=== PATIENT | male | born 1990 | race Caucasian/White ===

== ENCOUNTER 2019-03-16 09:05 | Emergency (ER) | payer SELFPAY ==
[2019-03-16] MEDS ORDERED: Proparacaine 0.5% Ophth Soln 15 ML Bottle EYEBOTH STA (09:17)
[2019-03-16 09:21] VITALS: BP 124/72; PULSE 60
--- NOTE | 2019-03-16 09:38 | EDM.PDOC ---
ED HPI GENERAL MEDICAL PROBLEM - General Chief Complaint: Eye Problems Stated Complaint: CHEMICAL IN RT EYE Time Seen by Provider: 03/16/19 09:18 Source of Information: Reports: Patient, Family, RN Notes Reviewed History Limitations: Reports: No Limitations - History of Present Illness INITIAL COMMENTS - FREE TEXT/NARRATIVE: 29-year-old gentleman presents emergency department today following chemical irritation to the right eye, this occurred at work he was pouring 1 chemical into another buckets, exposure was a poly-resin that has styrene and cobalt components, MDs sheet recommends irrigation with water. Right Eye Pain Score (Numeric/FACES): 4 - Related Data Allergies Allergy/AdvReac Type Severity Reaction Status Date / Time amoxicillin [Amoxicillin] Allergy Rash Verified 03/16/19 09:25 Home Meds: Home Meds NK [No Known Home Meds] 07/26/15 [History] Past Medical History Psychiatric History: Reports: Depression, Suicidal Ideation Social & Family History - Tobacco Use Smoking Status *Q: Current Every Day Smoker ED ROS GENERAL - Review of Systems Review Of Systems: See Below Constitutional: Reports: No Symptoms HEENT: Reports: Eye Discharge, Eye Pain, Vision Change ED EXAM GENERAL W FULL EYE - Physical Exam Exam: See Below Exam Limited By: No Limitations General Appearance: Alert, Mild Distress Eye Exam: Right Eye: Conjunctival Injection, Left Eye: Normal Inspection, Bilateral Eye: EOMI, PERRL Eyelids: Bilateral: Normal Appearance Conjunctiva & Sclera: Right: Conjunctival Edema, Injected, Left: Normal Appearance Cornea Exam: Right: Normal Appearance, Examined with Flourescein Extraocular Movements: Bilateral: Intact Pupils: Normal Accommodation Pupillary Size: Bilateral: 4 mm Pupillary Reaction: Bilateral: Brisk Anterior Chamber: Bilateral: Normal Appearance Course - Vital Signs Last Recorded V/S: Last Vital Signs Temp 97.2 F 03/16/19 09:24 Pulse 60 03/16/19 09:24 Resp 16 03/16/19 09:24 BP 124/72 03/16/19 09:24 Pulse Ox 98 03/16/19 09:24 - Orders/Labs/Meds Orders: Active Orders 24 hr Category Date Time Status Eye Irrigation [RC] ASDIRECTED Care 03/16/19 09:17 Active Meds: Medications Discontinued Medications Generic Name Dose Route Start Last Admin Trade Name Freq PRN Reason Stop Dose Admin Proparacaine HCl 1 ml 03/16/19 09:17 03/16/19 09:32 Proparacaine 0.5% Ophth Soln EYEBOTH 03/16/19 09:18 3 drop NOW STA Administration Departure - Departure Time of Disposition: 10:28 Disposition: Home, Self-Care 01 Condition: Fair Clinical Impression: Chemical injury of eye Qualifiers: Encounter type: initial encounter Laterality: right Qualified Code(s): T26.91XA - Corrosion of right eye and adnexa, part unspecified, initial encounter - Discharge Information Referrals: PCP,None [Primary Care Provider] - Forms: ED Department Discharge Additional Instructions: Continue with regular medications, recommend follow-up with eye care provider in 2-3 days if no improvement call or return to the emergency department worsening symptoms - My Orders Last 24 Hours: My Active Orders 03/16/19 09:17 Eye Irrigation [RC] ASDIRECTED - Assessment/Plan Last 24 Hours: My Active Orders 03/16/19 09:17 Eye Irrigation [RC] ASDIRECTED Plan: Assessment Acuity = acute Site and laterality = chemical exposure right eye 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 He had good relief with flushing plan is to follow-up with eye care provider in 2-3 days if no improvement This note was dictated using [employer] voice recognition software please call with any questions on syntax or grammar.
== END 2019-03-16 10:35 | disposition home or self-care (01) ==
LOC: JP.ED 09:05
DX: T26.61XA Corrosion of cornea and conjunctival sac, right eye, initial encounter (principal); F17.200 Nicotine dependence, unspecified, uncomplicated; Z88.1 Allergy status to other antibiotic agents; Y99.0 Civilian activity done for income or pay
CPT/HCPCS: 99283; A9270; 99282

== ENCOUNTER 2019-07-18 15:56 | Emergency (ER) | payer SELFPAY ==
[2019-07-18 16:14] VITALS: BP 130/85; PULSE 73
[2019-07-18] MEDS ORDERED: Bacitracin Oint 1 GM U/D Packet TOP ONE (16:36)
[2019-07-18] MEDS ORDERED: Diphtheria,Pertussis(Acell),Tetanus Vaccine 0.5 ML SDV IM ONE (16:36)
--- NOTE | 2019-07-18 16:41 | EDM.PDOC ---
ED HPI GENERAL MEDICAL PROBLEM - General Chief Complaint: Laceration Stated Complaint: CUT ARM AT WORK Time Seen by Provider: 07/18/19 16:15 Source of Information: Reports: Patient History Limitations: Reports: No Limitations - History of Present Illness INITIAL COMMENTS - FREE TEXT/NARRATIVE: 29-year-old healthy male presents after sustaining a laceration to his left arm. 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 Minimal pain or bleeding. Unsure last tetanus shot. Sensation and motor function intact in the left hand. Left Arm Pain Score (Numeric/FACES): 2 - Related Data Allergies Allergy/AdvReac Type Severity Reaction Status Date / Time amoxicillin [Amoxicillin] Allergy Rash Verified 07/18/19 16:12 Home Meds: Home Meds NK [No Known Home Meds] 07/26/15 [History] Past Medical History Psychiatric History: Reports: Depression, Suicidal Ideation - Past Surgical History HEENT Surgical History: Reports: Other (See Below) Other HEENT Surgeries/Procedures: facial surgery after facial fractures Social & Family History - Tobacco Use Smoking Status *Q: Current Every Day Smoker Years of Tobacco use: 13 Packs/Tins Daily: 1 Used Tobacco, but Quit: No - Caffeine Use Caffeine Use: Reports: Coffee, Energy Drinks, Soda - Recreational Drug Use Recreational Drug Use: No ED ROS GENERAL - Review of Systems Review Of Systems: See Below Constitutional: Reports: No Symptoms HEENT: Reports: No Symptoms Respiratory: Reports: No Symptoms Cardiovascular: Reports: No Symptoms Endocrine: Reports: No Symptoms GI/Abdominal: Reports: No Symptoms : Reports: No Symptoms Musculoskeletal: Reports: No Symptoms Skin: Reports: Wound Neurological: Reports: No Symptoms Psychiatric: Reports: No Symptoms Hematologic/Lymphatic: Reports: No Symptoms Immunologic: Reports: No Symptoms ED EXAM, SKIN/RASH Exam: See Below Exam Limited By: No Limitations General Appearance: Alert, No Apparent Distress Ears: Normal External Exam Nose: Normal Inspection Throat/Mouth: Normal Inspection Head: Atraumatic, Normocephalic Neck: Normal Inspection Respiratory/Chest: No Respiratory Distress Cardiovascular: Regular Rate, Rhythm GI/Abdominal: Soft, No Distention Back Exam: Normal Inspection Extremities: Other (3 cm laceration through skin lateral, distal left forarm. No tender involvement. Distal CSM intact.) Neurological: Alert, Oriented Psychiatric: Normal Affect, Normal Mood Skin: Warm, Dry ED SKIN PROCEDURES - Laceration/Wound Repair Left Distal Arm Appearance: Subcutaneous Distal NVT: Neuro & Vascular Intact, No Tendon Injury Anesthetic Type: Local Local Anesthesia - Lidocaine (Xylocaine): 1% with EPI Local Anesthetic Volume: 2cc Skin Prep: Other (run under tap, local scrubbing) Exploration/Debridement/Repair: Wound Explored Closed with: Sutures Lac/Wound length In cm: 3 Suture Size: 4-0 # of Sutures: 2 Suture Type: Nylon Sterile Dressing Applied: Nurse Tetanus Status Addressed: Yes Complications: No Course - Vital Signs Last Recorded V/S: Last Vital Signs Temp 36.8 C 07/18/19 16:15 Pulse 73 07/18/19 16:15 Resp 73 H 07/18/19 16:15 BP 130/85 07/18/19 16:15 Pulse Ox 97 07/18/19 16:15 - Orders/Labs/Meds Orders: Active Orders 24 hr Category Date Time Status Vaccines to be Administered [RC] PER UNIT ROUTINE Care 07/18/19 16:36 Ordered Meds: Medications Discontinued Medications Generic Name Dose Route Start Last Admin Trade Name Hector PRN Reason Stop Dose Admin Bacitracin 1 dose 07/18/19 16:36 Bacitracin Oint 1 Gm TOP 07/18/19 16:37 ONETIME ONE Diphtheria/Tetanus/Acell Pertussis 0.5 ml 07/18/19 16:36 Adacel IM 07/18/19 16:37 .ONCE ONE - Re-Assessments/Exams Free Text/Narrative Re-Assessment/Exam: 29-year-old presents with left forearm laceration. Cut through the skin but no deep structure involvement. Distally neurovascularly intact. Repaired as above. Administered tetanus. Discussed wound cares, will follow-up in approximately 7 days for suture removal. 07/18/19 16:49 Departure - Departure Time of Disposition: 16:45 Disposition: Home, Self-Care 01 Clinical Impression: Laceration - Discharge Information *PRESCRIPTION DRUG MONITORING PROGRAM REVIEWED*: No *COPY OF PRESCRIPTION DRUG MONITORING REPORT IN PATIENT ELIF: No Instructions: Laceration Care, Adult, [id number] Referrals: PCP,None [Primary Care Provider] - Forms: ED Department Discharge Additional Instructions: Please follow up with your primary doctor in approximately 7 days for suture removal. As discussed, keep the area dry and covered with antibiotic ointment for the next 48 hrs See a physician for increasing redness, pain, or discharge as these may be signs of infection - My Orders Last 24 Hours: My Active Orders 07/18/19 16:36 Vaccines to be Administered [RC] PER UNIT ROUTINE - Assessment/Plan Last 24 Hours: My Active Orders 07/18/19 16:36 Vaccines to be Administered [RC] PER UNIT ROUTINE
== END 2019-07-18 16:58 | disposition home or self-care (01) ==
LOC: JP.ED 15:56
DX: S51.812A Laceration without foreign body of left forearm, initial encounter (principal); Z23 Encounter for immunization; F17.210 Nicotine dependence, cigarettes, uncomplicated; Z88.1 Allergy status to other antibiotic agents; W29.8XXA Contact with other powered hand tools and household machinery, initial encounter
CPT/HCPCS: 12002; 90471; 90715; 99282-25; 99283

== ENCOUNTER 2022-03-07 12:31 | Emergency (ER) | payer SELFPAY ==
[2022-03-07 12:44] VITALS: BP 112/72; PULSE 74
[2022-03-07] MEDS ORDERED: Ketorolac 30 MG/ML SDV IM ONE (13:23)
[2022-03-07] MEDS ORDERED: Sodium Chloride 0.9% 10 ML Syringe FLUSH PRN (13:24)
[2022-03-07] MEDS ORDERED: Ketorolac 30 MG/ML SDV IVPUSH ONE (13:28)
[2022-03-07] MEDS ORDERED: Morphine 2 MG/ML SYRINGE IVPUSH ONE (13:57)
[2022-03-07] MEDS ORDERED: Sodium Chloride 0.9% 1,000 ML IV ONE (15:09)
== END 2022-03-07 16:03 | disposition home or self-care (01) ==
LOC: JP.ED 12:31
DX: R10.11 Right upper quadrant pain (principal); D72.829 Elevated white blood cell count, unspecified; F17.210 Nicotine dependence, cigarettes, uncomplicated; Z88.0 Allergy status to penicillin
CPT/HCPCS: 36415; 74176; 80048; 80076; 81001; 85025; 96374; 96375; 99284; J1885; J2270; J3490; 99282

== ENCOUNTER 2024-03-12 09:41 | Emergency (ER) | payer MEDICAID ==
[2024-03-12 09:56] LABS: BASOPHILS ABSOLUTE AUTO 0.03 K/uL (0.00-0.10); BASOPHILS PERCENT AUTO 0.2 % (0.1-1.3); EOSINOPHILS ABSOLUTE AUTO 0.07 K/uL (0.00-0.40); EOSINOPHILS PERCENT AUTO 0.5 % (0.0-5.4); HEMATOCRIT 39.1 % (38.4-49.7); HEMOGLOBIN 13.4 g/dL (12.9-16.9); IMMATURE GRAN ABSOLUTE AUTO 0.04 K/uL (0.00-0.23); IMMATURE GRAN PERCENT AUTO 0.3 % (0.0-0.7); LYMPHOCYTES ABSOLUTE AUTO 2.25 K/uL (0.8-3.3); LYMPHOCYTES PERCENT AUTO 16.7 % (11.4-47.7); MEAN CORPUSCULAR HEMOGLOBIN 27.3 pg (31.6-35.5); MEAN CORPUSCULAR HGB CONC 34.3 g/dL (31.6-35.5); MEAN CORPUSCULAR VOLUME 79.8 fL (81.4-99.0); MONOCYTES ABSOLUTE AUTO 0.91 K/uL (0.20-0.90); MONOCYTES PERCENT AUTO 6.7 % (3.3-12.6); NEUTROPHILS ABSOLUTE AUTO 10.19 K/uL (1.0-7.6); NEUTROPHILS PERCENT AUTO 75.6 % (40.0-78.1); PLATELET COUNT,PLT 191 K/uL (130-375); WHITE BLOOD CELL COUNT,WBC 13.5 K/uL (3.2-11.0)
[2024-03-12 09:57] LABS: BASE EXCESS VENOUS -0.9 mm/L; BICARBONATE,VENOUS 24.2 mmol/L; CARBOXYHEMOGLOBIN 3.5 % (0.0-1.6); METHEMOGLOBIN 0.8 %; O2 SATURATION VENOUS 43.2; OXYHEMOGLOBIN 41.3 %; TOTAL HEMOGLOBIN 14.2 g/dL (13.5-18.0)
[2024-03-12 09:58] LABS: PO2 VENOUS 26.5 mm/Hg
[2024-03-12 10:20] LABS: A/G RATIO 1.1 (1.2-2.2); ALANINE AMINOTRANSFERASE,ALT 29 U/L (12-78); ALBUMIN 3.1 g/dL (3.4-5.0); ALKALINE PHOSPHATASE 105 U/L (46-116); ANION GAP 9.8 mmol/L (5.0-14.0); ASPARTATE AMNIOTRANSFERASE,AST 16 U/L (15-37); BILIRUBIN TOTAL 0.4 mg/dL (0.2-1.0); BLOOD UREA NITROGEN,BUN 18 mg/dL (7-18); CALCIUM 9.2 mg/dL (8.5-10.1); CARBON DIOXIDE,CO2 25 mmol/L (21-32); CHLORIDE,CL 106 mmol/L (100-108); CREATININE 0.6 mg/dL (0.8-1.3); EST CRCL DRUG DOSING (CG) 147.42 mL/min; ESTIMATED GFR 128 mL/min (>60); GLUCOSE RANDOM 92 mg/dL (74-106); POTASSIUM,K 3.8 mmol/L (3.6-5.2); SODIUM,NA 141 mmol/L (140-148); TROPONIN I HIGH SENSITIVITY 8.2 pg/mL (<=60.3)
[2024-03-12 10:35] LABS: CORONAVIRUS COVID-19 NAA NEGATIVE (NEGATIVE); INFLUENZA A NAA NEGATIVE (NEGATIVE); INFLUENZA B NAA NEGATIVE (NEGATIVE); RESPIRATORY SYNCYTIAL VIR NAA NEGATIVE (NEGATIVE)
[2024-03-12] MEDS ORDERED: Iopamidol 612 MG/ML 100 ML Bottle IV ONE (10:46)
[2024-03-12] MEDS: Sodium Chloride 0.9% 1,000 ML IV SCH (10:49)
[2024-03-12 10:51] LABS: APPEARANCE,URINE CLEAR (CLEAR); BILIRUBIN,URINE NEGATIVE (NEGATIVE); COLOR,URINE YELLOW (YELLOW); GLUCOSE,URINE NEGATIVE (NEGATIVE); KETONES,URINE NEGATIVE (NEGATIVE); LEUKOCYTE ESTERASE,URINE NEGATIVE (NEGATIVE); NITRITE,URINE NEGATIVE (NEGATIVE); OCCULT BLOOD,URINE NEGATIVE (NEGATIVE); PH,URINE 5.5 (5.0-8.0); PROTEIN,URINE NEGATIVE (NEGATIVE); UROBILINOGEN,URINE 0.2 EU/dL (0.2-1.0)
[2024-03-12 10:58] LABS: AMORPHOUS SEDIMENT,URINE NOT SEEN; AMPHETAMINES SCREEN, URINE NEGATIVE (NEGATIVE); BACTERIA,URINE NOT SEEN; BARBITURATE SCREEN,URINE NEGATIVE (NEGATIVE); BENZODIAZEPINES SCREEN,URINE NEGATIVE (NEGATIVE); EPITHELIAL CELLS,URINE NOT SEEN; METHADONE SCREEN, URINE NEGATIVE (NEGATIVE); METHAMPHETAMINES SCREEN, URINE NEGATIVE (NEGATIVE); MUCUS,URINE NOT SEEN; OXYCODONE SCREEN,URINE NEGATIVE (NEGATIVE); PROPOXYPHENE SCREEN,URINE NEGATIVE (NEGATIVE); RBC,URINE NOT SEEN (0-5); THC SCREEN,URINE 50 NG/ML PRESUMPTIVE POSITIVE (NEGATIVE); WBC,URINE 0-5 (0-5)
[2024-03-12] MEDS: Sodium Chloride 0.9% 10 ML Syringe FLUSH ONE (11:32)
[2024-03-12] MEDS: Iopamidol 755 Mg/ML 100 ML Bottle IV ONE (11:32)
[2024-03-12] MEDS: Sodium Chloride 0.9% 100 ML IV ONE (11:32)
[2024-03-12 12:06] VITALS: BP 136/82; PULSE 104
== END 2024-03-12 13:20 | disposition home or self-care (01) ==
LOC: JP.ED 09:41
DX: R06.02 Shortness of breath (principal); E86.0 Dehydration; N28.89 Other specified disorders of kidney and ureter; Z88.0 Allergy status to penicillin; Z79.899 Other long term (current) drug therapy
CPT/HCPCS: 0241U; 36415; 71045; 71045-26; 71275; 74177; 80053; 80305-QW; 80307; 81001; 82803; 83605; 84145; 84439; 84443; 84484; 85025; 85379; 93005; 96360; 96361; 99285-25; J3490; J7030; Q9967

== ENCOUNTER 2024-04-23 12:37 | Emergency (ER) | payer MEDICAID ==
[2024-04-23 12:53] VITALS: BP 148/94; PULSE 102
[2024-04-23 13:32] LABS: BASOPHILS ABSOLUTE AUTO 0.04 K/uL (0.00-0.10); BASOPHILS PERCENT AUTO 0.3 % (0.1-1.3); EOSINOPHILS ABSOLUTE AUTO 0.06 K/uL (0.00-0.40); EOSINOPHILS PERCENT AUTO 0.5 % (0.0-5.4); HEMATOCRIT 40.9 % (38.4-49.7); HEMOGLOBIN 14.3 g/dL (12.9-16.9); IMMATURE GRAN ABSOLUTE AUTO 0.03 K/uL (0.00-0.23); IMMATURE GRAN PERCENT AUTO 0.3 % (0.0-0.7); LYMPHOCYTES ABSOLUTE AUTO 2.76 K/uL (0.8-3.3); LYMPHOCYTES PERCENT AUTO 23.3 % (11.4-47.7); MEAN CORPUSCULAR HEMOGLOBIN 27.1 pg (31.6-35.5); MEAN CORPUSCULAR VOLUME 77.6 fL (81.4-99.0); MONOCYTES ABSOLUTE AUTO 1.29 K/uL (0.20-0.90); MONOCYTES PERCENT AUTO 10.9 % (3.3-12.6); NEUTROPHILS ABSOLUTE AUTO 7.66 K/uL (1.0-7.6); NEUTROPHILS PERCENT AUTO 64.7 % (40.0-78.1); PLATELET COUNT,PLT 257 K/uL (130-375); RED BLOOD CELL COUNT 5.27 M/uL (4.14-5.76); WHITE BLOOD CELL COUNT,WBC 11.8 K/uL (3.2-11.0)
[2024-04-23 13:51] LABS: ANION GAP 13.9 mmol/L (5.0-14.0); C-REACTIVE PROTEIN 1.35 mg/dL (<0.50); CALCIUM 9.9 mg/dL (8.5-10.1); CREATININE 0.4 mg/dL (0.8-1.3); EST CRCL DRUG DOSING (CG) 190.67 mL/min; POTASSIUM,K 3.9 mmol/L (3.6-5.2)
[2024-04-23] MEDS: ceFAZolin 2 GM in Premix Bag 1 BAG IV ONE (15:33)
[2024-04-23] MEDS: HYDROmorphone 0.5 MG/0.5 ML Syringe IVPUSH ONE (15:33)
[2024-04-23] MEDS: Ondansetron 4 MG/2 ML SDV IVPUSH ONE (15:39)
== END 2024-04-23 16:14 | disposition home or self-care (01) ==
LOC: JP.ED 12:37
DX: L03.211 Cellulitis of face (principal); K02.9 Dental caries, unspecified; F17.210 Nicotine dependence, cigarettes, uncomplicated; Z88.0 Allergy status to penicillin; Z79.899 Other long term (current) drug therapy; Z86.16 Personal history of COVID-19
CPT/HCPCS: 36415; 70486; 80048; 83605; 85025; 86140; 96365; 96375; 99284; J0690; J1170; J2405

== ENCOUNTER 2024-12-02 14:56 | Emergency (ER) | payer SELFPAY ==
[2024-12-02 15:37] LABS: BASOPHILS ABSOLUTE AUTO 0.04 K/uL (0.00-0.10); BASOPHILS PERCENT AUTO 0.4 % (0.1-1.3); EOSINOPHILS ABSOLUTE AUTO 0.19 K/uL (0.00-0.40); EOSINOPHILS PERCENT AUTO 1.9 % (0.0-5.4); HEMATOCRIT 49.6 % (38.4-49.7); HEMOGLOBIN 16.9 g/dL (12.9-16.9); IMMATURE GRAN PERCENT AUTO 0.2 % (0.0-0.7); LYMPHOCYTES ABSOLUTE AUTO 2.74 K/uL (0.8-3.3); LYMPHOCYTES PERCENT AUTO 28.1 % (11.4-47.7); MEAN CORPUSCULAR HEMOGLOBIN 27.6 pg (31.6-35.5); MEAN CORPUSCULAR HGB CONC 34.1 g/dL (31.6-35.5); MONOCYTES PERCENT AUTO 6.2 % (3.3-12.6); NEUTROPHILS ABSOLUTE AUTO 6.16 K/uL (1.0-7.6); NEUTROPHILS PERCENT AUTO 63.2 % (40.0-78.1); PLATELET COUNT,PLT 221 K/uL (130-375); RED BLOOD CELL COUNT 6.12 M/uL (4.14-5.76); WHITE BLOOD CELL COUNT,WBC 9.8 K/uL (3.2-11.0)
[2024-12-02 15:45] LABS: IMMATURE GRAN ABSOLUTE AUTO 0.02 K/uL (0.00-0.23)
[2024-12-02 15:54] LABS: INR 1.1; PROTHROMBIN TIME 11.4 sec (9.2-10.6)
[2024-12-02 16:07] LABS: A/G RATIO 1.2 (1.2-2.2); ALANINE AMINOTRANSFERASE,ALT 24 U/L (12-78); ALBUMIN 3.6 g/dL (3.4-5.0); ALKALINE PHOSPHATASE 177 U/L (46-116); ANION GAP 11.7 mmol/L (5.0-14.0); ASPARTATE AMNIOTRANSFERASE,AST 10 U/L (15-37); BILIRUBIN TOTAL 0.4 mg/dL (0.2-1.0); BLOOD UREA NITROGEN,BUN 13 mg/dL (7-18); CALCIUM 9.6 mg/dL (8.5-10.1); CARBON DIOXIDE,CO2 24 mmol/L (21-32); CHLORIDE,CL 105 mmol/L (100-108); CREATININE 0.7 mg/dL (0.8-1.3); EST CRCL DRUG DOSING (CG) 118.87 mL/min; ESTIMATED GFR 122 mL/min (>60); GLUCOSE RANDOM 104 mg/dL (74-106); PROTEIN TOTAL,TP 6.6 g/dL (6.4-8.2); SODIUM,NA 141 mmol/L (140-148)
[2024-12-02 16:08] LABS: TROPONIN I HIGH SENSITIVITY < 4.0 pg/mL (<=60.3); TSH ULTRASENSITIVE < 0.007 uIU/mL (0.358-3.740)
[2024-12-02 17:12] LABS: T3 FREE 13.38 pg/dL (2.18-3.98); T4 FREE 2.82 ng/dL (0.76-1.46)
[2024-12-02] MEDS: Metoprolol Succinate 50 MG Tab.ER PO SCH (19:24)
[2024-12-02 19:27] VITALS: BP 141/83; PULSE 74
[2024-12-02] MEDS: predniSONE 20 MG Tab PO SCH (19:27)
== END 2024-12-02 19:28 ==
LOC: JP.ED 14:56
DX: E06.9 Thyroiditis, unspecified (principal); R79.1 Abnormal coagulation profile; Z88.1 Allergy status to other antibiotic agents; Z86.16 Personal history of COVID-19
CPT/HCPCS: 36415; 76536; 80053; 84439; 84443; 84481; 84484; 85025; 85610; 93005; 99285; A9270; J7512; 93010